=== PATIENT | female | born 1970 | race Caucasian/White ===

== ENCOUNTER → 2016-06-06 | Outpatient (CLI) | payer OTHER ==
[~2016-06-06] VITALS: Ht 162.6 cm; Wt 112.5 kg
--- NOTE | 2016-06-06 09:39 | RAD ---
Right upper quadrant abdominal ultrasound, 06/06/2016: History: Pain There are numerous echogenic foci in the gallbladder with associated posterior acoustic shadowing. The appearance is that of cholelithiasis. The gallbladder wall is not thickened. No bile duct dilatation is seen. The hepatic echogenicity appears to be mildly increased in a diffuse pattern. The liver measures 19 cm in craniocaudad extent at the level of the right lobe. No hepatic mass is evident. The visualized portions of the pancreas and right kidney are unremarkable. IMPRESSION: 1. Cholelithiasis. 2. Mildly increased hepatic echogenicity, most commonly due to fatty change.
[2016-06-06] MEDS: NORMAL SALINE IV ONE (11:03)
[2016-06-06] MEDS: SINCALIDE IV ONE (11:03)
--- NOTE | 2016-06-06 11:25 | RAD ---
Hepatobiliary scan with gallbladder ejection fraction calculation 06/06/2016 Clinical History: Intermittent abdominal pain for one year.. Technique: After the intravenous administration of 5.3 mCi of Technetium 99m Choletec, imaging of the right upper quadrant of the abdomen was performed using the gamma camera for 60 minutes. 2.25 mcg of CCK was then infused intravenously over 30 minutes. Continued imaging of the right upper quadrant abdomen was performed. A gallbladder ejection fraction was calculated. Findings: Normal uptake and excretion of the radionuclide by the liver is seen. There is no evidence of cystic or common bile duct obstruction. The gallbladder is within normal limits in size and configuration. During the infusion CCK normal emptying of the gallbladder is seen. The gallbladder ejection fraction is 59 % which is within normal limits. Impression: Negative study.
== END | disposition home or self-care (01) ==
LOC: US 07:59
PROVIDERS: ATTEND Internal Medicine Gastroenterology
DX: K80.20 Calculus of gallbladder without cholecystitis without obstruction (principal)
CPT/HCPCS: 76705; 78226; 96374; 96375; A9537; J2805

== ENCOUNTER → 2016-09-15 | Outpatient (CLI) | payer OTHER ==
--- NOTE | 2016-09-15 11:49 | RAD ---
DATE: 09/15/2016 EXAM: MAMMO JOANA TOBI PARSON HISTORY: Follow-up breast nodules COMPARISON: 11/26/2015, 03/20/2015 This study was interpreted with the benefit of Computerized Aided Detection (CAD). The breast parenchyma is heterogeneously dense, which could reduce the sensitivity of mammography. Breast parenchyma level C. FINDINGS: A 9-10 mm nodule with lobulated margins is again noted medially in the left breast as best seen on CC tomogram image #41. It is unchanged There is a similar sized lobulated nodule in the lateral aspect of the left breast as seen on image 52 of the CC joana series which is also unchanged. No new or enlarging breast densities are seen. No suspicious microcalcifications are evident. IMPRESSION: Unchanged left breast nodules. Follow-up left mammography in 6 months and bilateral mammography at one year is suggested. BI-RADS CATEGORY: 3 PROBABLY BENIGN FINDING(S)-SHORT INTERVAL FOLLOW-UP SUGGESTED RECOMMENDED FOLLOW-UP: 6M 6 MONTH FOLLOW-UP PQRS compliance statement: Patient information was entered into a reminder system with a target due date for the next mammogram. Mammography is a sensitive method for finding small breast cancers, but it does not detect them all and is not a substitute for careful clinical examination. A negative mammogram does not negate a clinically suspicious finding and should not result in delay in biopsying a clinically suspicious abnormality. "Our facility is accredited by the [employer] Mammography Program."
== END | disposition home or self-care (01) ==
LOC: MAMMO 08:57
PROVIDERS: ATTEND Physician Assistant Medical
DX: N63 Unspecified lump in breast (principal)
CPT/HCPCS: G0204; G0279; 77062; 77066

== ENCOUNTER → 2017-04-03 | Outpatient (CLI) | payer OTHER ==
--- NOTE | 2017-04-03 11:36 | RAD ---
DATE: 04/03/2017 EXAM: MAMMO JOANA TOBI BRANHAMAT HISTORY: Follow-up left breast nodules COMPARISON: 09/15/2016 This study was interpreted with the benefit of Computerized Aided Detection (CAD). The breast parenchyma is heterogeneously dense, which could reduce sensitivity of mammography. Breast parenchyma level C. FINDINGS: 2-D and 3-D tomosynthesis imaging was performed in CC and MLO projections. Again noted is a 10 mm lobulated nodule in the medial aspect of the left breast best seen on joana image #38. A similar sized lobulated nodule is present laterally in the left breast as best seen on CC joana image #48. These nodules are are unchanged since previous studies dating back to 03/20/2015. No new or enlarging breast densities are seen. No suspicious microcalcifications are evident. IMPRESSION: 1. Unchanged left breast nodules suggesting a benign etiology. Mammographic follow-up in one year is suggested. 2. No new mammographic abnormality is detected. BI-RADS CATEGORY: 2 BENIGN FINDING(S) RECOMMENDED FOLLOW-UP: 12M 12 MONTH FOLLOW-UP PQRS compliance statement: Patient information was entered into a reminder system with a target due date for the next mammogram. Mammography is a sensitive method for finding small breast cancers, but it does not detect them all and is not a substitute for careful clinical examination. A negative mammogram does not negate a clinically suspicious finding and should not result in delay in biopsying a clinically suspicious abnormality. "Our facility is accredited by the [employer] Mammography Program."
== END | disposition home or self-care (01) ==
LOC: MAMMO 10:42
PROVIDERS: ATTEND Physician Assistant Medical
DX: N63.20 Unspecified lump in the left breast, unspecified quadrant (principal); I10 Essential (primary) hypertension
CPT/HCPCS: 77066; G0279; 77062

== ENCOUNTER 2017-04-14 20:23 | Emergency (ER) | payer OTHER ==
[~2017-04-14] VITALS: Ht 162.6 cm; Wt 110.2 kg
--- NOTE | 2017-04-14 20:32 | ED.ADGEN ---
Past History Past Medical History: Anxiety, Depression Past Surgical History: No Surgical History Smoking: Non-smoker Alcohol Use: None Drug Use: None Adult General Chief Complaint Chief Complaint ".. I think I am have an allergic reaction.. I was eating pizza..." [facility] HPI Patient is a 46 year old female who presents with above hx and complaints of allergic reaction to eating pizza. Pt. complaints of wheezing, cough, itchy throat and skin after consumption of pizza. Pt. denies ingestion of any other drugs or foods. Patient has had a previous episode similar to this in the past. Patient has several episodes with intake of penicillins. No recent travel. No specific ill contacts. Review of Systems Review of Systems Constitutional: Denies fever or chills [] Eyes: Denies change in visual acuity, redness, or eye pain [] HENT: Denies nasal congestion or sore throat []complaints of itchy throat Respiratory: History of cough and wheezing Cardiovascular: No additional information not addressed in HPI [] GI: Denies abdominal pain, nausea, vomiting, bloody stools or diarrhea [] : Denies dysuria or hematuria [] Musculoskeletal: Denies back pain or joint pain [] Integument: Denies rash or skin lesions []complaints of skin itching Neurologic: Denies headache, focal weakness or sensory changes [] Endocrine: Denies polyuria or polydipsia [] All other systems were reviewed and found to be within normal limits, except as documented in this note. Family History Family History Noncontributory Current Medications Current Medications Current Medications Medications (Trade) Dose Ordered Sig/Jodi Start Time Stop Time Status Last Admin Dose Admin Albuterol Sulfate (Ventolin Hfa) 2 puff 1X ONCE 04/14/17 21:00 2 21:01 DC 04/14/17 21:00 2 PUFF Famotidine (Pepcid) 20 mg 1X ONCE 04/14/17 21:00 04/14/17 21:01 DC Magnesium Citrate (Citroma) 296 ml 1X ONCE 04/14/17 21:00 04/14/17 21:01 DC Methylprednisolone Acetate (DEPO-Medrol IM) 40 mg 1X ONCE 04/14/17 21:00 04/14/17 21:01 DC Methylprednisolone Sodium Succinate (SOLU-Medrol 40MG VIAL) 40 mg 1X ONCE 04/14/17 21:00 04/14/17 21:01 DC 04/14/17 21:00 40 MG See nursing for home meds Allergies Allergies Allergies Coded Allergies Type Severity Reaction Last Updated Verified Penicillins Allergy Intermediate 10/12/13 Yes Physical Exam Physical Exam Constitutional: Moderately acute distress, non-toxic appearance. [] HENT: Normocephalic, atraumatic, bilateral external ears normal, oropharynx moist, no oral exudates, nose rhinorrhea. Eyes: PERRLA, EOMI, conjunctiva normal, no discharge. [] Neck: Normal range of motion, no tenderness, supple, no stridor. [] Cardiovascular:Heart rate regular rhythm, no murmur [] Lungs & Thorax: Bilateral breath sounds equal apexes with a few scattered wheezes auscultation [] Abdomen: Bowel sounds normal, soft, no tenderness, no masses, no pulsatile masses. Obese Skin: Warm, dry, no erythema, no rash. [] Back: No tenderness, no CVA tenderness. [] Extremities: No tenderness, no cyanosis, no clubbing, ROM intact, no edema. [] Neurologic: Alert and oriented X 3, normal motor function, normal sensory function, no focal deficits noted. [] Psychologic: Affect anxious, judgement normal, mood normal. [] Current Patient Data Vital Signs Vital Signs Date Time Temp Pulse Resp B/P (MAP) Pulse Ox O2 Delivery O2 Flow Rate FiO2 04/14/17 20:41 98.0 102 20 98 Room Air EKG EKG [] Radiology/Procedures Radiology/Procedures [] Course & Med Decision Making Course & Med Decision Making Pertinent Labs and Imaging studies reviewed. (See chart for details). Patient reports almost complete relief of symptoms after Solu-Medrol and Ventolin MDI Patient to use MDI 2 puffs 4 times a day. Patient to take Benadryl 25-50 mg 4 times a day for itching. Patient takes Zantac 150 mg twice a day. Patient follow -up primary care. Stay on a clear fluid diet tonight. Expect some diarrhea by morning. Avoid intake at pizza in the future. Return if any concerns. [] Final Impression Final Impression 1. Allergic reaction-[] Problems: Dragon Disclaimer Dragon Disclaimer This electronic medical record was generated, in whole or in part, using a voice recognition dictation system. SABI REYNOLDS MD Apr 14, 2017 20:32
[2017-04-14 20:41] VITALS: BP 156/118
[2017-04-14] MEDS ORDERED: RANI150T6 PO (20:48)
[2017-04-14] MEDS ORDERED: MAGNESIUM CITRATE 296 ML SOLUTION. PO ONE (21:00)
[2017-04-14] MEDS ORDERED: ALBUTEROL SULFATE 8GM INHALER. INH ONE (21:00)
[2017-04-14] MEDS ORDERED: methylPREDNISolone SOD SUCC PF 40 MG/ML VIAL. IV ONE (21:00)
[2017-04-14] MEDS ORDERED: methylPREDNISolone ACETATE 40 MG/ML VIAL. IM ONE (21:00)
[2017-04-14] MEDS ORDERED: FAMOTIDINE 20 MG TABLET PO ONE (21:00)
== END 2017-04-14 21:15 | disposition home or self-care (01) ==
LOC: ER 20:23
DX: T78.1XXA Other adverse food reactions, not elsewhere classified, initial encounter (principal); Z88.0 Allergy status to penicillin; X58.XXXA Exposure to other specified factors, initial encounter
CPT/HCPCS: 94640; 96374; 99284; J2920; J7613

== ENCOUNTER → 2018-04-13 | Outpatient (CLI) | payer OTHER ==
[~2018-04-13] MED LIST: RANI150T21 PO
--- NOTE | 2018-04-13 13:09 | RAD ---
DATE: 04/13/2018 EXAM: MAMMO JOANA SCREENING BILATERAL HISTORY: Routine screening COMPARISON: 04/03/2017 This study was interpreted with the benefit of Computerized Aided Detection (CAD). Breast Density: HETERO The breast parenchyma is heterogenously dense, which could reduce sensitivity of mammography. Breast parenchyma level C. FINDINGS: 2-D and 3-D tomosynthesis imaging was performed in CC and MLO projections. There are unchanged small lobulated nodules in both the medial and lateral aspects of the left breast. No new or enlarging breast densities are seen. No spiculated mass or architectural distortion is evident. No suspicious microcalcifications are seen. IMPRESSION: Stable mammograms without evidence of malignancy. BI-RADS CATEGORY: 3 PROBABLY BENIGN FINDING(S)-SHORT INTERVAL FOLLOW-UP SUGGESTED RECOMMENDED FOLLOW-UP: 12M 12 MONTH FOLLOW-UP PQRS compliance statement: Patient information was entered into a reminder system with a target due date for the next mammogram. Mammography is a sensitive method for finding small breast cancers, but it does not detect them all and is not a substitute for careful clinical examination. A negative mammogram does not negate a clinically suspicious finding and should not result in delay in biopsying a clinically suspicious abnormality. "Our facility is accredited by the [employer] Mammography Program."
== END | disposition home or self-care (01) ==
LOC: MAMMO 09:45
PROVIDERS: ATTEND Physician Assistant Medical
DX: Z12.31 Encounter for screening mammogram for malignant neoplasm of breast (principal); N63.20 Unspecified lump in the left breast, unspecified quadrant
CPT/HCPCS: 77063; 77067

== ENCOUNTER → 2018-11-05 | Outpatient (CLI) | payer OTHER ==
[~2018-11-05] MED LIST changes: +RANI-376 PO; -RANI150T21 PO
[2018-11-05 11:16] LABS: BASO % 0 % (0-3); EOS # 0.1 x10^3/uL (0.0-0.7); EOS % 1 % (0-3); HEMATOCRIT 38.8 % (36.0-47.0); HEMOGLOBIN 12.8 g/dL (12.0-15.5); LYMPH # 2.8 x10^3/uL (1.0-4.8); LYMPH % 28 % (24-48); MEAN CORPUSCULAR HEMOGLOBIN 25 pg (25-35); MEAN CORPUSCULAR HGB CONC 33 g/dL (31-37); MEAN CORPUSCULAR VOLUME 77 fL (79-100); MONO # 0.5 x10^3/uL (0.0-1.1); MONO % 5 % (0-9); NEUT # 6.5 x10^3uL (1.8-7.7); NEUT % 65 % (31-73); PLATELET COUNT 389 x10^3/uL (140-400); RED BLOOD COUNT 5.07 x10^6/uL (3.50-5.40); RED CELL DISTRIBUTION WIDTH 13.5 % (11.5-14.5)
[2018-11-05 11:23] LABS: ALBUMIN 3.5 g/dL (3.4-5.0); ALBUMIN/GLOBULIN RATIO 0.8 (1.0-1.7); CALCIUM 9.1 mg/dL (8.5-10.1); CREATININE 0.8 mg/dL (0.6-1.0); TOTAL PROTEIN 7.8 g/dL (6.4-8.2)
[2018-11-05 11:24] LABS: GFR 77.6; TOTAL BILIRUBIN 0.3 mg/dL (0.2-1.0)
[2018-11-05 12:31] LABS: SEDIMENTATION RATE 21 (0-25)
[2018-11-05 14:25] LABS: FREE T4 0.95 ng/dL (0.76-1.46); THYROID STIM HORMONE (TSH) 0.985 uIU/mL (0.358-3.740)
== END | disposition home or self-care (01) ==
LOC: PMG 10:18
PROVIDERS: ATTEND Physician Assistant Medical
DX: B37.3 Candidiasis of vulva and vagina (principal)
CPT/HCPCS: 36415; 80053; 83036; 84439; 84443; 84481; 85025; 85651

== ENCOUNTER → 2019-06-10 | Outpatient (CLI) | payer OTHER | END | disposition home or self-care (01) | LOC: LAB 09:26 | PROVIDERS: ATTEND Physician Assistant Medical | DX: R30.0 Dysuria (principal) | CPT/HCPCS: 87086 ==

== ENCOUNTER → 2019-09-07 | Outpatient (CLI) | payer OTHER | END | disposition home or self-care (01) | LOC: LAB 10:26 | PROVIDERS: ATTEND Internal Medicine Pulmonary Disease | DX: Z20.828 Contact with and (suspected) exposure to other viral communicable diseases (principal) | CPT/HCPCS: C9803; U0003; 36415 ==

== ENCOUNTER → 2019-09-14 | Outpatient (CLI) | payer OTHER ==
[~2019-09-14] MED LIST changes: +IOHEXOL 300 MG/ML 75 ML VIAL. IV ONE
--- NOTE | 2019-09-14 08:54 | RAD ---
PQRS Compliance Statement: One or more of the following individualized dose reduction techniques were utilized for this examination: 1. Automated exposure control 2. Adjustment of the mA and/or kV according to patient size 3. Use of iterative reconstruction technique CT SOFT TISSUE NECK W/CONTRAST 09/14/2019 8:00 AM Indication: Neck fullness on the right side COMPARISON: None available. TECHNIQUE: Multiple axial CT images of the neck were obtained after the intravenous administration of 75 cc Omnipaque 300. Coronal and sagittal reformats are provided. FINDINGS: The visualized brain parenchyma appears intact. The skull base is normal. The visualized paranasal sinuses and orbital contents are normal. The sella turcica and cavernous sinus regions appear intact. The mastoid air cells are normal. The fossa of Rosenmuller is normal. The parotid space contents and band sawing machine operator space contents appear intact. The parapharyngeal spaces are normal. The submandibular and sublingual space contents appear intact. The epiglottis, aryepiglottic folds, and piriform sinuses are normal. The vallecula appears normal. The larynx and trachea are normal. The thyroid lobes appear intact. The carotid space contents are normal. There is no deep cervical chain adenopathy observed. The jugulodigastric regions appear intact. The perivertebral space contents are normal. The supraclavicular regions appear intact. The visualized mediastinum is normal. The visualized lungs appear intact. The visualized osseous structures are normal. Impression: No suspicious abnormality identified within the larynx and pharynx. No pathologically enlarged cervical lymph nodes. In the area of the marker placed at site of palpable abnormality, normal-appearing sternocleidomastoid visualized. Electronically signed by: Paris Gutierrez MD (09/14/2019 8:51 AM) [facility]
--- NOTE | 2019-09-14 17:26 | RAD ---
EXAM: BILATERAL DIGITAL 3D SCREENING MAMMOGRAPHY. HISTORY: Routine mammographic screening. TECHNIQUE: Bilateral digital 3D and tomographic images were obtained in CC and MLO projections. Computer-aided detection was applied. COMPARISON: 04/13/2018. COMPOSITION: B. There are scattered areas of fibroglandular density. FINDINGS: There are no suspicious masses, microcalcifications or architectural distortion. The parenchymal pattern is stable. Obscured nodules on the left are stable and likely reflect benign intramammary lymph nodes. BI-RADS CATEGORY 2: Benign. RECOMMENDATION: 1. Routine screening mammography in one year. If mammography demonstrates dense breast tissue (heterogenously dense or extremely dense, category C or D), which could hide abnormalities, and if other risk factors for breast cancer have been identified, supplemental screening tests that may be suggested by the ordering physician may be of benefit. Dense breast tissue, in and of itself, is a relatively common condition. Therefore, this information is not provided to cause undue concern, but rather to raise awareness and to promote discussion with the referring physician regarding the presence of other risk factors, in addition to dense breast tissue. The results of this mammography examination is provided to the patient and referring physician. The patient should contact their referring physician if any questions or concerns exist regarding this report. PQRS compliance statement - Patient information was entered into a reminder system with a target due date for the next mammogram. "Our facility is accredited by the [employer] Mammography Program." Electronically signed by: Jillian Chester MD (09/14/2019 5:23 PM) [id number]
== END | disposition home or self-care (01) ==
LOC: CT 07:48
PROVIDERS: ATTEND Physician Assistant Medical
DX: Z12.31 Encounter for screening mammogram for malignant neoplasm of breast (principal); R22.1 Localized swelling, mass and lump, neck
CPT/HCPCS: 70491; 77063; 77067; Q9967

== ENCOUNTER → 2021-01-21 | Outpatient (CLI) | payer OTHER ==
[~2021-01-21] MED LIST changes: -IOHEXOL 300 MG/ML 75 ML VIAL. IV ONE
== END ==
LOC: LAB 12:41
PROVIDERS: ATTEND Nurse Practitioner
DX: R43.9 Unspecified disturbances of smell and taste (principal); Z20.822 Contact with and (suspected) exposure to COVID-19
CPT/HCPCS: U0003